=== PATIENT | male | born 1960 | race Caucasian/White ===

== ENCOUNTER 2024-12-24 09:03 | Outpatient (CLI) | payer BC, OTHER, SELFPAY ==
[2024-12-24 13:55] LABS: Basophils # 0.1 K/mm3 (0-0.2); Basophils % 0.9 % (0.1-2.0); Eosinophils # 0.4 Kmm3 (0.0-0.4); Eosinophils % 4.7 % (0.1-12.0); Hematocrit 47.8 % (42.0-52.0); Hemoglobin 16.4 g/dL (14.1-18.0); Immature Granulocytes # 0.01 10^3uL; Immature Granulocytes % 0.1 %; Lymphocytes # 1.2 K/mm3 (0.7-4.5); Lymphocytes % 13.8 % (10-50); Mean Corpuscular HGB Conc 34.3 g/dL (31.8-35.4); Mean Corpuscular Hemoglobin 32.5 pg (27.0-31.2); Mean Corpuscular Volume 94.7 fl (80-94); Mean Platelet Volume 9.9 fl (7.4-10.4); Monocytes # 0.9 K/mm3 (0.1-1.0); Monocytes % 10.2 % (1.7-9.3); Neutrophils % 70.3 % (37.0-80.0); Nucleated Red Blood Cells # 0 10^3/uL; Nucleated Red Blood Cells % 0 %; Platelet Count 222 K/mm3 (142-424); Red Blood Count 5.05 M/mm3 (4.60-6.20); Red Cell Distribution Width 12.8 % (11.5-17.5); Red Cell Distribution Width-SD 43.8 fL; White Blood Count 8.5 K/mm3 (4.8-10.8)
[2024-12-24 14:48] LABS: Alanine Aminotransferase 51 U/L (12-78); Albumin/Globulin Ratio 2.1 (1.1-1.8); Alkaline Phosphatase 64 U/L (38-126); Anion Gap 15.2 mEq/L (5-15); Aspartate Amino Transferase 45 U/L (17-59); Bilirubin,Total 1.4 mg/dl (0.2-1.3); Blood Urea Nitrogen 29 mg/dl (9-20); Calcium 9.3 mg/dl (8.4-10.2); Carbon Dioxide 30 mmol/L (22.0-30.0); Chloride 102 mmol/L (98-107); Chol/HDL Ratio 3.8 (1-3.5); Cholesterol 106 mg/dl (140-200); Estimated Glomerular Filt Rate 85 ml/min (>60); GFR (African American) 103 ML/MIN (>60); Globulin 2.4 g/dL (1.3-3.2); Glucose 87 mg/dl (74-100); HDL Cholesterol 28 mg/dl (40-60); Potassium 4.2 mmoL/L (3.5-5.1); Sodium 143 mmol/L (136-145); Total Protein,Serum 7.4 g/dl (6.3-8.2); Triglycerides 193 mg/dl (30-150); VLDL Cholesterol 39 mg/dL (0-40)
[2024-12-24 15:01] LABS: Direct LDL Cholesterol 55.45 mg/dL (100-129)
[2024-12-24 19:46] LABS: HIV Combo NEGATIVE (Negative)
[2024-12-24 20:03] LABS: Hepatitis C Ab Qual. W/ RFX NEGATIVE (Negative)
[2024-12-24 22:01] LABS: Hemoglobin A1C 5.4 % (4.0-6.0)
--- OUTSIDE RECORDS SUMMARY | 2024-12-25 12:25 | XMS_ITS | Continuity of Care Document ---
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 It does not include entries that were removed or entered in error. Problem Status Onset Date Problem Type Date of Resolution Comments Source Anticipatory Guidance: Tobacco Use Inactive Condition discussed with patient need to quit using tobacco as it is a major cardiovascular risk factor. Pt given information regarding tobacco cessation courses and chantix. [facility] NICOTINE DEPENDENCE Active Condition [facility] HYPERLIPIDEMIA Active Condition [facility] visit for: screening exam Inactive Condition [facility] HYPERTENSION (SYSTEMIC) Active Condition not well controlled and due to cough and rash will change to different med. [facility] HORDEOLUM INTERNUM Inactive Condition t reat with warm compresses and antibiotics [facility] Allergies, Adverse Reactions, Alerts Combined list of allergies from Department of Defense and Veterans Affairs facilities. It does not include entries that were removed or entered in error. Substance Category Reaction Severity Reaction type Status Date Reported Comments Source No Known Allergies Drug allergy (disorder) active 10/05/2007 [facility] Immunizations Combined list of available immunizations from the Department of Defense and Veterans Affairs facilities. Immunization Series Date Given Administered By Site Reaction Lot Number CVX Code Drug [place] Instructor Status Comments Source influenza virus vaccine, whole virus 1 1998 Unknown, Provider [id number] 16 Rafa (CON) complet ed influenza virus vaccine, whole virus [facility] influenza virus vaccine, whole virus 1 1997 Unknown, Provider [id number] 16 Rafa (CON) complet ed influenza virus vaccine, whole virus [facility] hepatitis A vaccine, adult dosage 2 1997 Unknown, Provider [id number] [address] [place], [place] [address]Kline (SKB) complet ed hepatitis A vaccine, adult dosage [facility] influenza virus vaccine, whole virus 1 1997 Unknown, Provider [id number] 16 Ibrahima (Inactive) ([place]) complet ed influenza virus vaccine, whole virus [facility] meningococcal polysaccharid e vaccine (MPSV4) 1 1996 Unknown, Provider [id number] 32 Rafa (CON) complet ed meningoco ccal polysacch aride vaccine (MPSV4) [facility] trivalent poliovirus vaccine, live, oral 1 1990 Unknown, Provider 02 () complet ed trivalent polioviru s vaccine, live, oral [facility] tetanus and diphtheria toxoids, adsorbed, preservative free, for adult use (2 Lf of tetanus toxoid and 2 Lf of diphtheria toxoid) 1 1990 Unknown, Provider 09 () complet ed tetanus and diphtheri a toxoids, adsorbed, preservat argelia free, for adult use (2 Lf of tetanus toxoid and 2 Lf of diphtheri a toxoid) [facility] measles, mumps and rubella virus vaccine 1 1978 Unknown, Provider 03 () complet ed measles, mumps and rubella virus vaccine [facility] Encounters Combined list of: 1) Encounters from Department of Veterans Affairs facilities going backup to the last 18 months, not all VA inpatient encounters are included; 2) Encounters from the Department of Defense facilities going backup to 280 months. Location Location Details Encounter Type Encounter Number Reason For Visit Attending Provider ADM Date DC Date Status Disposition Source [facility]) OUTPATIENT [id number] EYE INFECTI ON/NOC LEANA ESPINOSA 06/28 Released w/o Limitations [facility]) [facility]) OUTPATIENT [id number] bp eval. LEANA ESPINOSA 07/03 Released w/o Limitations [facility]) [facility]) OUTPATIENT [id number] blood pressur e/refil l meds(No c) LEANA ESPINOSA 08/23 Released w/o Limitations [facility]) [facility]) OUTPATIENT [id number] Blood pressur e follow up/refi l LEANA ESPINOSA 08/18 Released w/o Limitations [facility]) [facility]) TELE CONSULT [id number] Lab results /medica tion order EVANS KEVIN ODOM 09/18 [facility]) [facility]) OUTPATIENT [id number] Follow- up, Blood Pressur e Meds LEANA ESPINOSA 09/15 Released w/o Limitations [facility] Procedures Combined list of: 1) Procedures from Department of Veterans Affairs facilities [facility], not all [place] non-surgical procedures are included; 2) All procedures from the Department of Defense facilities. Procedure Procedure Type Code Date Perfomer Comments [facility] e ELECTROCARDIOGRAM, ROUTINE ECG WITH AT LEAST 12 LEADS; WITH INTERPRETATION AND REPORT 08/23/2006 [facility] OTHER PLASTIC REPAIR OF PALATE 01/02/1996 [facility] REMOVAL OF IMPLANTABLE VENOUS ACCESS DEVICE, AND/OR SUBCUTANEOUS RESERVOIR 07/08/2000 [facility] ECG Interpretation And Report Only ECG Interpretation And Report Only [id number] 08/23/2006 LEANA ESPINOSA [facility] Social History Combined list of available smoking, tobacco, and other social history from Department of Defense and Veterans Affairs facilities. Social History Type Response Date Comment [facility] e This section is an empty social history section. [facility]
== END 2024-12-24 23:59 | disposition home or self-care (01) ==
LOC: LAB.DROPOF 12-25 12:23
PROVIDERS: PCP Internal Medicine; Visit Provider Internal Medicine
DX: E78.5 Hyperlipidemia, unspecified (principal); I10 Essential (primary) hypertension; Z13.220 Encounter for screening for lipoid disorders; Z11.59 Encounter for screening for other viral diseases; Z13.1 Encounter for screening for diabetes mellitus; Z11.4 Encounter for screening for human immunodeficiency virus [HIV]; Z00.00 Encounter for general adult medical examination without abnormal findings
CPT/HCPCS: 80053; 80061; 83036; 85025; 86803; 87389

== ENCOUNTER → 2025-02-26 08:05 | Outpatient (CLI) | payer BC, OTHER, SELFPAY ==
--- OUTSIDE RECORDS SUMMARY | 2025-02-26 08:06 | XMS_ITS | Continuity of Care Document ---
Author Name [facility] Organization [facility] Care Team Providers Care Summer Child Caregiver Name Role Phone [facility] Unavailable Unavailable Problems Combined list of problems [...] information regarding tobacco cessation courses and chantix. [facility] NICOTINE DEPENDENCE Active Condition [facility] HYPERLIPIDEMIA Active Condition [facility] visit for: screening exam Inactive Condition [facility] HYPERTENSION (SYSTEMIC) Active Condition not well controlled and due to cough and rash will change to different med. [facility] HORDEOLUM INTERNUM Inactive Condition t reat with warm compresses and antibiotics [facility] Allergies, Adverse Reactions, Alerts Combined list of [...] Site Reaction Lot Number CVX Code Drug Outpatient Coordinator Status Comments Source influenza virus vaccine, whole virus 1 1998 Unknown, Provider [id number] 16 Rafa (CON) complet ed influenza virus vaccine, whole virus [facility] influenza virus vaccine, whole virus 1 1997 Unknown, Provider [id number] 16 Rafa (CON) complet ed influenza virus vaccine, whole virus [facility] hepatitis A vaccine, adult dosage 2 1997 Unknown, Provider [id number] [address] [place], [place] [address]Kline (SKB) complet ed hepatitis A vaccine, adult dosage Do[facility] influenza virus vaccine, whole virus 1 1997 Unknown, Provider [id number] 16 Ibrahima (Inactive) ([place]) complet ed influenza virus vaccine, whole virus [facility] meningococcal polysaccharid e vaccine (MPSV4) 1 1996 Unknown, Provider [id number] 32 Rafa (CON) complet ed meningoco ccal polysacch aride vaccine (MPSV4) [facility] trivalent poliovirus vaccine, live, oral 1 1990 Unknown, Provider 02 () complet ed trivalent polioviru s vaccine, live, oral [facility] tetanus and diphtheria toxoids, adsorbed, preservative free, [...] ed measles, mumps and rubella virus vaccine [facility] Encounters Combined list of: 1) Encounters from Department of Veterans Affairs facilities going backup to the last 18 months, not all VA inpatient encounters are included; 2) Encounters from the Department of Defense facilities going backup to 280 months. Location Location Details Encounter Type Encounter Number Reason For Visit Attending Provider ADM Date DC Date Status Disposition Source [facility]) OUTPATIENT [id number] EYE INFECTI ON/NOC LEANA ESPINOSA 06/28 Released w/o Limitations [facility]) [facility]) OUTPATIENT [id number] bp eval. LEANA ESPINOSA 07/03 Released w/o Limitations [facility]) [facility]) OUTPATIENT [id number] blood pressur e/refil l meds(No c) LEANA ESPINOSA 08/23 Released w/o Limitations [facility]) [facility]) OUTPATIENT [id number] Blood pressur e follow up/refi l LEANA ESPINOSA 08/18 Released w/o Limitations [facility]) [facility]) TELE CONSULT [id number] Lab results /medica tion order EVANS KEVIN ODOM 09/18 [facility]) [facility] [id number] Follow- up, Blood Pressur e Meds LEANA ESPINOSA 09/15 Released w/o Limitations [facility] Procedures Combined list of: 1) Procedures from [facility] of [facility] facilities [facility], not all [place] non-surgical procedures are included; 2) All procedures from the Department of Defense facilities. 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 Social History Type Response Date Comment [facility] e This section is an empty social history section. [facility]
== END ==
LOC: SL 08:05
PROVIDERS: PCP Internal Medicine; Visit Provider Internal Medicine
DX: G47.33 Obstructive sleep apnea (adult) (pediatric) (principal); G47.36 Sleep related hypoventilation in conditions classified elsewhere
CPT/HCPCS: G0399

== ENCOUNTER 2025-05-13 14:16 | Outpatient (CLI) | payer BC, OTHER, SELFPAY ==
--- NOTE | 2025-05-13 14:22 | XR_ITS ---
FINAL REPORT CLINICAL HISTORY: Low back pain FINDINGS: AP and lateral views of the lumbar spine were obtained. There is no prior exam for comparison. There is no acute fracture or acute malalignment. Mild retrolisthesis of L4 on L5. Multilevel degenerative disc disease is most pronounced at L3-4 and L4-5. No acute paraspinal abnormality. IMPRESSION: Multilevel degenerative changes and retrolisthesis of L4 on L5. Reviewed, Interpreted and Dictated by Libby Perea MD Transcribed by Chasidy Fenton Authenticated and [facility]
--- NOTE | 2025-05-13 14:22 | XR_ITS ---
FINAL REPORT CLINICAL HISTORY: Knee pain FINDINGS: Two views of the left knee were obtained. There is no prior exam for comparison. There is no acute fracture or dislocation. There is a small osteochondral defect of the medial femoral condyle. Mild degenerative disease. There is no acute soft tissue abnormality. IMPRESSION: Mild degenerative disease without acute abnormality identified. Small osteochondral defect medial femoral condyle. Reviewed, Interpreted and Dictated by Libby Perea MD Transcribed by Chasidy Fenton Authenticated and [facility]
--- NOTE | 2025-05-13 14:22 | XR_ITS ---
FINAL REPORT CLINICAL HISTORY: Knee pain FINDINGS: Two views of the right knee were obtained. There is no prior exam for comparison. There is no acute fracture or dislocation. Mild degenerative joint disease of the patellofemoral joint. There is no acute soft tissue abnormality. IMPRESSION: Mild degenerative changes without acute osseous abnormality of the right knee. Reviewed, Interpreted and Dictated by Libby Perea MD Transcribed by Chasidy Fenton Authenticated and [facility] [place] [place]
--- NOTE | 2025-05-13 14:22 | XR_ITS ---
FINAL REPORT CLINICAL HISTORY: low back pain FINDINGS: SINGLE VIEW PELVIS: A single view of the pelvis was obtained. There is no prior exam for comparison. There is no acute fracture or dislocation. Mild degenerative disease of the hips bilaterally. Soft tissues are unremarkable. IMPRESSION: Mild degenerative changes without acute osseous abnormality of the pelvis. Reviewed, Interpreted and Dictated by Libby Perea MD Transcribed by Chasidy Fenton Authenticated and [facility]
== END 2025-05-13 23:59 | disposition home or self-care (01) ==
LOC: RAD 14:18
PROVIDERS: PCP Internal Medicine; Visit Provider Internal Medicine
DX: M16.0 Bilateral primary osteoarthritis of hip (principal); M47.816 Spondylosis without myelopathy or radiculopathy, lumbar region; M43.16 Spondylolisthesis, lumbar region; M17.12 Unilateral primary osteoarthritis, left knee; M17.11 Unilateral primary osteoarthritis, right knee; M21.952 Unspecified acquired deformity of left thigh
CPT/HCPCS: 72100; 72170; 73560